=== PATIENT | male | born 1990 | race African-American/Black ===

== ENCOUNTER 2018-04-14 06:28 | Emergency (ER) | payer OTHER ==
[~2018-04-14] VITALS: Ht 185.4 cm; Wt 91.2 kg
[2018-04-14 06:40] VITALS: BP 145/86; Ht 185.4 cm; Wt 91.2 kg
== END 2018-04-14 07:35 | disposition home or self-care (01) ==
LOC: ED 06:28
DX: S61.300A Unspecified open wound of right index finger with damage to nail, initial encounter (principal); W22.8XXA Striking against or struck by other objects, initial encounter; Y93.89 Activity, other specified; Y92.89 Other specified places as the place of occurrence of the external cause; Y99.8 Other external cause status
CPT/HCPCS: 90715